=== PATIENT | female | born 1960 | race Caucasian/White ===

== ENCOUNTER 2021-01-06 04:59 | Observation (INO) ==
[2021-01-06] MEDS ORDERED: Naloxone 0.4 MG/ML INJ IVP PRN (08:44)
[2021-01-06] MEDS ORDERED: Acetaminophen 325 MG TABLET PO ONE (09:31)
[2021-01-06] MEDS ORDERED: Albuterol 2.5 MG/3 ML NEBULIZER IH PRN (10:03)
[2021-01-06] MEDS: Ringers Solution, Lactated 1,000 ML IVC SCH ×2 (10:42→20:20)
[2021-01-06] MEDS ORDERED: SUMAtriptan succinate 50 MG TABLET PO PRN (13:49)
[2021-01-06] MEDS ORDERED: Nitroglycerin 0.4 MG TAB.SUBL SL PRN (13:49)
[2021-01-06] MEDS: risperiDONE 1 MG TABLET PO SCH (14:12)
[2021-01-06] MEDS: *HR* OxyCODONE/APAP 10/325 TABLET PO SCH ×2 (14:12→20:22)
[2021-01-06] MEDS: Loratadine 10 MG TABLET PO SCH (14:12)
[2021-01-06] MEDS: FLUoxetine 20 MG CAPSULE PO SCH (14:12)
[2021-01-06] MEDS: Aspirin Enteric Coated 81 MG Tablet PO SCH (14:12)
[2021-01-06] MEDS: Furosemide 20 MG TABLET PO SCH (14:12)
[2021-01-06] MEDS: *HR* LORazepam 1 MG TABLET PO PRN (14:12)
[2021-01-06] MEDS: Fluticasone Propionate Nasal 50 MCG/SPRAY BOTTLE NS SCH (14:13)
[2021-01-06] MEDS: Budesonide/Formoterol 80/4.5 1 PUFF INH IH SCH ×2 (14:15→19:48)
[2021-01-06] MEDS: carvediloL 6.25 MG TABLET PO SCH (16:16)
[2021-01-06] MEDS ORDERED: Warfarin perPT PO PRN (18:00)
[2021-01-06] MEDS ORDERED: *HR* Warfarin 3 MG TABLET PO ONE (18:00)
[2021-01-06] MEDS ORDERED: traZODone 50 MG TABLET PO SCH (21:00)
[2021-01-07 04:23] LABS: Basophils % 0.1 %; Hematocrit 31.1 % (35.3-44.9); Hemoglobin 9.6 g/dL (11.5-15.4); Immature Granulocytes % 0.4 % (0-4); Lymphocytes # 1.6 K/mcL (0.6-4.6); Lymphocytes % 9.4 %; Mean Corpuscular HGB Conc 30.9 g/dL (31.6-35.5); Mean Corpuscular Hemoglobin 29.4 pg (28.0-33.3); Mean Corpuscular Volume 95.4 fL (83.0-100.0); Mean Platelet Volume 9.5 fL (9.4-12.4); Monocytes # 0.7 K/mcL (0.0-1.3); Monocytes % 4.4 %; Neutrophils # 14.2 K/mcL (1.6-8.9); Platelet Count 213 K/mcL (140-400); Red Blood Count 3.26 M/mcL (3.82-4.97); Red Cell Distribution Width 14.4 % (11.5-14.5); Segmented Neutrophils % 85.7 %; White Blood Count 16.6 K/mcL (4.3-11.1)
[2021-01-07 04:30] LABS: INR 3.4; Prothrombin Time 37.6 Seconds (9.4-12.1)
[2021-01-07 04:47] LABS: BUN/Creatinine Ratio 18 (6-26); Blood Urea Nitrogen 17 mg/dL (6-20); Calcium 8.7 mg/dL (8.6-10.3); Carbon Dioxide 25 mEq/L (23-29); Chloride 108 mEq/L (98-107); Glucose 109 mg/dL (70-105); Osmolality,Calculated 290 (280-300); Potassium 4.3 mEq/L (3.5-5.1); Sodium 139 mEq/L (136-145); eGFR For African Americans > 60 (> 60); eGFR For Non-African Americans > 60 (> 60)
[2021-01-07] MEDS: *HR* LORazepam 1 MG TABLET PO PRN (06:18)
[2021-01-07] MEDS: *HR* OxyCODONE/APAP 10/325 TABLET PO SCH (06:18)
[2021-01-07] MEDS: Budesonide/Formoterol 80/4.5 1 PUFF INH IH SCH (07:39)
[2021-01-07] MEDS ORDERED: levoFLOXacin 750 MG/150 ML 750 MG/150 ML BAG IVPB SCH (09:00)
[2021-01-07] MEDS: Ringers Solution, Lactated 1,000 ML IVC SCH (09:14)
[2021-01-07] MEDS: risperiDONE 1 MG TABLET PO SCH (09:17)
[2021-01-07] MEDS: FLUoxetine 20 MG CAPSULE PO SCH (09:18)
[2021-01-07] MEDS: Furosemide 20 MG TABLET PO SCH (09:18)
[2021-01-07] MEDS: Loratadine 10 MG TABLET PO SCH (09:18)
[2021-01-07] MEDS: carvediloL 6.25 MG TABLET PO SCH (09:19)
[2021-01-07] MEDS: Aspirin Enteric Coated 81 MG Tablet PO SCH (09:19)
[2021-01-07] MEDS: Fluticasone Propionate Nasal 50 MCG/SPRAY BOTTLE NS SCH (09:19)
[2021-01-07 15:21] VITALS: BP 108/71
== END 2021-01-07 18:35 | disposition home or self-care (01) ==
LOC: 2NNU → SUATTDRO 08:24 → 2ANU 09:55
PROVIDERS: ADMIT Internal Medicine; ATTEND Internal Medicine